=== PATIENT | female | born 1985 | race Caucasian/White ===

== ENCOUNTER 2016-05-08 11:29 | Emergency (ER) | payer SELFPAY ==
[~2016-05-08] VITALS: Ht 170.2 cm; Wt 89.8 kg
[~2016-05-08 11:29] MED LIST: ALBUTEROL0.09 MG/A1; PRENATAL VITAMI1 T10 PO; TYLENOL #3 300/1 TAB PO; ZESTRIL10 MG PO
[2016-05-08 11:54] VITALS: BP 141/80
--- NOTE | 2016-05-08 14:32 | NUR ---
PATIENT PRESENTS TO ED DUE TO ABDOMINAL PAIN SINCE THIS MORNING . PT STATES IM 19 WEEKS , DENIES N/V/D; SKIN IS PINK/WARM/DRY; AAOX4 WITH EVEN AND STEADY GAIT; LUNGS CLEAR BL; HR EVEN AND REGULAR; PT DENIES ANY FEVER, CP, SOB, OR COUGH AT THIS TIME; PATIENT STATES PAIN OF 7/10 AT THIS TIME; PATIENT POSITIONED FOR COMFORT; HOB ELEVATED; BEDRAILS UP X2; BED DOWN.
--- NOTE | 2016-05-08 14:45 | NUR ---
RELAYED TO DR. BULL RESULT OF URINE DIPSTICK AND URINE PREG
[2016-05-08] MEDS ORDERED: HYDROcodone/APAP 5/325 MG 1 TAB TAB PO ONE (14:55)
--- NOTE | 2016-05-08 16:09 | NUR ---
US AT BEDSIDE.
--- NOTE | 2016-05-08 16:30 | NUR ---
PT AAO ONGOING WITH US
[2016-05-08 17:30] VITALS: BP 128/83
--- NOTE | 2016-05-08 17:30 | NUR ---
Patient discharged with v/s stable. Written and verbal after care instructions given and explained. Patient verbalized understanding. Ambulatory with steady gait. All questions addressed prior to discharge. Advised to follow up with PMD.
[2016-09-14] MEDS ORDERED: VENTOLIN H0.09 MG/Ac IH (20:13)
[2016-10-05] MEDS ORDERED: PNV-DHA1 SGL PO (05:23)
[2016-10-09] MEDS ORDERED: MOTRIN600 MG PO (09:09)
== END 2016-05-08 17:30 | disposition home or self-care (01) ==
LOC: MED 11:48
DX: O26.892 Other specified pregnancy related conditions, second trimester (principal); O16.2 Unspecified maternal hypertension, second trimester; O99.512 Diseases of the respiratory system complicating pregnancy, second trimester; R10.31 Right lower quadrant pain; J45.909 Unspecified asthma, uncomplicated; Z3A.18 18 weeks gestation of pregnancy
CPT/HCPCS: 36415; 76705; 80053; 81002; 81025; 83690; 85025; 99285; Q0092

== ENCOUNTER 2016-06-25 12:30 | Observation (INO) | payer MEDICAID ==
[~2016-06-25] VITALS: Ht 170.2 cm; Wt 92.5 kg
[2016-06-25 13:00] VITALS: BP 151/81
[2016-06-25] MEDS ORDERED: PRENATAL LOW IR1 TA1 PO (13:10)
[2016-06-25] MEDS ORDERED: LABETALOL 100 MG TAB ONE ×2 (13:58→20:59)
[2016-06-25] MEDS: LABETALOL 100 MG TAB PO SCH (21:13)
[2016-06-26] MEDS ORDERED: ACETAMINOPHEN 325 MG TAB PO PRN (03:10)
[2016-06-26] MEDS ORDERED: diphenhydrAMINE 50 MG CAP PO SCH (03:30)
[2016-06-26] MEDS ORDERED: ACETAMINOPHEN 325 MG TAB ONE (04:26)
--- NOTE | 2016-06-26 08:20 | NUR ---
PATIENT HAS BEEN SCREENED AND CATEGORIZED LOW NUTRITION RISK. PATIENT WILL BE SEEN WITHIN 7 DAYS OF ADMISSION. 07/02/[address]
[2016-06-26] MEDS: LABETALOL 100 MG TAB PO SCH (08:23)
[2016-06-26] MEDS ORDERED: LABETALOL 100 MG TAB ONE (08:25)
[2016-06-26] MEDS ORDERED: TRANDATE200 M1 PO ×2 (09:56→10:01)
[2016-09-14] MEDS ORDERED: VENTOLIN H0.09 MG/Ac IH (20:13)
[2016-10-05] MEDS ORDERED: PNV-DHA1 SGL PO (05:23)
[2016-10-09] MEDS ORDERED: MOTRIN600 MG PO (09:09)
== END 2016-06-26 10:20 | disposition home or self-care (01) ==
LOC: MLD 12:30
PROVIDERS: ADMIT Obstetrics & Gynecology; ATTEND Obstetrics & Gynecology
DX: O14.92 Unspecified pre-eclampsia, second trimester (principal); O26.892 Other specified pregnancy related conditions, second trimester; R03.0 Elevated blood-pressure reading, without diagnosis of hypertension; R51 Headache; L29.9 Pruritus, unspecified; Z3A.25 25 weeks gestation of pregnancy
CPT/HCPCS: 76805; G0378; Q0092

== ENCOUNTER 2016-09-07 11:25 | Observation (INO) | payer MEDICAID ==
[~2016-09-07] VITALS: Ht 170.2 cm; Wt 94.8 kg
[~2016-09-07 11:25] MED LIST changes: +ALBU0.0939; -ALBUTEROL0.09 MG/A1; +PREN-380 PO; -PRENATAL VITAMI1 T10 PO; +TRA200 PO; -TYLENOL #3 300/1 TAB PO; -ZESTRIL10 MG PO
[2016-09-07 12:38] LABS: BASOPHILS % (AUTO) 0.4 % (0.0-2.0); EOSINOPHILS # (AUTO) 0.4 K/uL (0-0.4); EOSINOPHILS % (AUTO) 4.4 % (0.0-4.0); HEMATOCRIT 32.8 % (36-48); HEMOGLOBIN 10.5 g/dL (12.0-16.0); LYMPHOCYTES % (AUTO) 9.8 % (20.5-51.1); MEAN CORPUSCULAR HEMOGLOBIN 25 pg (27-31); MEAN CORPUSCULAR HGB CONC 32 g/dL (33-37); MEAN CORPUSCULAR VOLUME 78 fL (80-94); MONOCYTES # (AUTO) 0.4 K/uL (0.8-1.0); MONOCYTES % (AUTO) 4.4 % (1.7-9.3); NEUTROPHILS # (AUTO) 8.1 K/uL (1.8-7.7); PLATELET COUNT (AUTO) 250 K/uL (140-450); RED BLOOD CELL COUNT(AUTO) 4.23 MIL/uL (4.20-5.40); RED CELL DISTRIBUTION WIDTH 14.1 % (11.6-13.7); WHITE BLOOD COUNT (AUTO) 9.9 K/uL (4.8-10.8)
[2016-09-07 12:47] LABS: ANION GAP 13.2 (8-16); CALCIUM 8.4 mg/dL (8.5-10.1); CARBON DIOXIDE 22.9 mmol/L (21-32); CREATININE 0.5 mg/dL (0.6-1.3); POTASSIUM 4.1 mmol/L (3.5-5.1)
[2016-09-07 12:54] LABS: ALBUMIN 2.5 g/dL (3.4-5.0); TOTAL BILIRUBIN 0.2 mg/dL (0.0-1.0)
== END 2016-09-07 17:00 | disposition home or self-care (01) ==
LOC: MLD 11:25
PROVIDERS: ADMIT Obstetrics & Gynecology; ATTEND Obstetrics & Gynecology
DX: O62.9 Abnormality of forces of labor, unspecified (principal); Z3A.36 36 weeks gestation of pregnancy
CPT/HCPCS: 36415; 76805; 80053; 81000; 82248; 85025; 85379; 85384; 85730; G0378; Q0092

== ENCOUNTER 2016-09-10 08:24 | Observation (INO) | payer MEDICAID ==
[2016-09-10 09:17] VITALS: BP 125/77
== END 2016-09-10 11:30 | disposition home or self-care (01) ==
LOC: MLD 08:24
PROVIDERS: ADMIT Obstetrics & Gynecology; ATTEND Obstetrics & Gynecology
DX: O26.899 Other specified pregnancy related conditions, unspecified trimester (principal); R03.0 Elevated blood-pressure reading, without diagnosis of hypertension; Z3A.00 Weeks of gestation of pregnancy not specified
CPT/HCPCS: 59025; 76819; 81000; G0378; Q0092

== ENCOUNTER 2016-09-14 19:23 | Observation (INO) | payer MEDICAID ==
[~2016-09-14] VITALS: Ht 170.2 cm; Wt 93.9 kg
[~2016-09-14 19:23] MED LIST changes: +PREN-385 PO; -TRA200 PO
[2016-09-14] MEDS ORDERED: ALBU0.0912 IH (20:13)
== END 2016-09-14 21:50 | disposition home or self-care (01) ==
LOC: MLD 19:23 → MERGE 19:23
PROVIDERS: ADMIT Obstetrics & Gynecology; ATTEND Obstetrics & Gynecology
DX: O26.899 Other specified pregnancy related conditions, unspecified trimester (principal); R10.9 Unspecified abdominal pain; Z3A.00 Weeks of gestation of pregnancy not specified
CPT/HCPCS: 59025; 76815; G0378; Q0092

== ENCOUNTER 2016-09-18 15:21 | Observation (INO) | payer MEDICAID ==
[~2016-09-18] VITALS: Ht 170.2 cm; Wt 93.9 kg
[~2016-09-18 15:21] MED LIST changes: +ALBU0.0912 IH
[2016-09-18 16:35] VITALS: BP 136/90
== END 2016-09-18 17:10 | disposition home or self-care (01) ==
LOC: MLD 15:21
PROVIDERS: ADMIT Obstetrics & Gynecology; ATTEND Obstetrics & Gynecology
DX: O26.893 Other specified pregnancy related conditions, third trimester (principal); R03.0 Elevated blood-pressure reading, without diagnosis of hypertension; Z3A.37 37 weeks gestation of pregnancy
CPT/HCPCS: 59025; 76815; 81000; G0378; Q0092

== ENCOUNTER 2016-09-21 18:33 | Observation (INO) | payer MEDICAID | END 2016-09-21 21:00 | disposition home or self-care (01) | LOC: MFCC 18:33 → MLD 19:37 | PROVIDERS: ADMIT Obstetrics & Gynecology; ATTEND Obstetrics & Gynecology | DX: O42.90 Premature rupture of membranes, unspecified as to length of time between rupture and onset of labor, unspecified weeks of gestation (principal); Z3A.00 Weeks of gestation of pregnancy not specified | CPT/HCPCS: 76819; G0378 ==

== ENCOUNTER 2016-09-25 08:51 | Observation (INO) | payer MEDICAID ==
[~2016-09-25] VITALS: Ht 170.2 cm; Wt 96.2 kg
[2016-09-25 09:40] VITALS: BP 134/83
== END 2016-09-25 11:30 | disposition home or self-care (01) ==
LOC: MLD 08:51
PROVIDERS: ADMIT Obstetrics & Gynecology; ATTEND Obstetrics & Gynecology
DX: O36.8190 Decreased fetal movements, unspecified trimester, not applicable or unspecified (principal); Z3A.00 Weeks of gestation of pregnancy not specified
CPT/HCPCS: 59025; 76815; G0378; Q0092

== ENCOUNTER 2016-09-26 06:30 | Observation (INO) | payer MEDICAID ==
[~2016-09-26] VITALS: Ht 170.2 cm; Wt 96.2 kg
--- NOTE | 2016-09-26 09:04 | NUR ---
PATIENT HAS BEEN SCREENED AND CATEGORIZED LOW NUTRITION RISK. PATIENT WILL BE SEEN WITHIN 7 DAYS OF ADMISSION. 10/02/[address]
== END 2016-09-26 09:30 | disposition home or self-care (01) ==
LOC: MLD 06:30
PROVIDERS: ADMIT Obstetrics & Gynecology; ATTEND Obstetrics & Gynecology
DX: O36.8190 Decreased fetal movements, unspecified trimester, not applicable or unspecified (principal); Z3A.00 Weeks of gestation of pregnancy not specified
CPT/HCPCS: 76819; G0378; Q0092

== ENCOUNTER 2016-09-28 16:30 | Observation (INO) | payer MEDICAID ==
[~2016-09-28] VITALS: Ht 170.2 cm; Wt 96.2 kg
[2016-09-28 17:12] VITALS: BP 148/81
== END 2016-09-28 18:30 | disposition home or self-care (01) ==
LOC: MLD 16:30
PROVIDERS: ADMIT Obstetrics & Gynecology; ATTEND Obstetrics & Gynecology
DX: O36.8190 Decreased fetal movements, unspecified trimester, not applicable or unspecified (principal); Z3A.00 Weeks of gestation of pregnancy not specified
CPT/HCPCS: 76819; G0378; Q0092

== ENCOUNTER 2016-10-02 13:13 | Observation (INO) | payer MEDICAID ==
[~2016-10-02] VITALS: Ht 170.2 cm; Wt 96.2 kg
[2016-10-02 13:37] VITALS: BP 133/79
== END 2016-10-02 15:20 | disposition home or self-care (01) ==
LOC: MLD 13:13
PROVIDERS: ADMIT Obstetrics & Gynecology; ATTEND Obstetrics & Gynecology
DX: O36.8190 Decreased fetal movements, unspecified trimester, not applicable or unspecified (principal); Z3A.00 Weeks of gestation of pregnancy not specified
CPT/HCPCS: 76815; G0378; Q0092; 81000

== ENCOUNTER 2016-10-05 05:12 | Inpatient (IN) | payer MEDICAID ==
[~2016-10-05] VITALS: Ht 170.2 cm; Wt 97.5 kg
[2016-10-05] MEDS ORDERED: LACTATED RINGERS 1,000 ML IV SCH (05:23)
[2016-10-05] MEDS ORDERED: PREN1SGL25 PO (05:23)
[2016-10-05] MEDS ORDERED: CARBOPROST 250 MCG/ML AMP IM PRN ×2 (05:25→12:16)
[2016-10-05] MEDS ORDERED: METHYLERGONOVINE 0.2 MG/ML AMP IM PRN ×2 (05:25→15:35)
[2016-10-05 06:00] LABS: BASOPHILS % (AUTO) 0.4 % (0.0-2.0); EOSINOPHILS # (AUTO) 0.3 K/uL (0-0.4); EOSINOPHILS % (AUTO) 3.2 % (0.0-4.0); HEMATOCRIT 32.5 % (36-48); HEMOGLOBIN 10.7 g/dL (12.0-16.0); LYMPHOCYTES # (AUTO) 1.1 K/uL (2.5-16.5); LYMPHOCYTES % (AUTO) 13.3 % (20.5-51.1); MEAN CORPUSCULAR HEMOGLOBIN 25 pg (27-31); MEAN CORPUSCULAR HGB CONC 33 g/dL (33-37); MEAN CORPUSCULAR VOLUME 77 fL (80-94); MONOCYTES # (AUTO) 0.5 K/uL (0.8-1.0); MONOCYTES % (AUTO) 6.2 % (1.7-9.3); NEUTROPHILS # (AUTO) 6.3 K/uL (1.8-7.7); NEUTROPHILS % (AUTO) 76.9 % (42.2-75.2); PLATELET COUNT (AUTO) 251 K/uL (140-450); RED BLOOD CELL COUNT(AUTO) 4.24 MIL/uL (4.20-5.40); RED CELL DISTRIBUTION WIDTH 15.6 % (11.6-13.7); WHITE BLOOD COUNT (AUTO) 8.2 K/uL (4.8-10.8)
[2016-10-05 06:47] VITALS: BP 135/90
[2016-10-05] MEDS ORDERED: ceFAZolin 1,000 MG VIAL ONE (07:01)
[2016-10-05 07:15] LABS: APPEARANCE,URINE HAZY (CLEAR); BILIRUBIN,URINE NEGATIVE (NEGATIVE); BLOOD, URINE NEGATIVE (NEGATIVE); COLOR,URINE YELLOW (YELLOW); LEUKOCYTE ESTERASE ,URINE 3+ (NEGATIVE); NITRITE, URINE NEGATIVE (NEGATIVE); PH,URINE 6.5 (5.0-9.0); PROTEIN,URINE NEGATIVE (NEGATIVE); UGLUCOSE NEGATIVE (NEGATIVE); UROBILINOGEN,URINE 0.2 EU/dL (0.2 - 1)
[2016-10-05 07:20] LABS: BACTERIA,URINE 0-2 (RARE) /HPF (None Seen); RBC,URINE 0-2 /HPF (0-5)
[2016-10-05] MEDS ORDERED: MIDAZOLAM 2 MG/2 ML VIAL ONE (07:20)
[2016-10-05] MEDS ORDERED: MORPHINE PRES FREE 10 MG/10 ML AMP IV ONE (07:20)
[2016-10-05] MEDS ORDERED: OXYTOCIN 20 UNITS/LR PREMIX 1,000 ML IV PRN (07:30)
[2016-10-05] MEDS ORDERED: METHYLERGONOVINE 0.2 MG/ML AMP ONE (07:31)
[2016-10-05] MEDS ORDERED: OXYTOCIN 10 UNITS/ML VIAL ONE (07:31)
[2016-10-05] MEDS ORDERED: BUPIVACAINE-MPF 0.75% 10 ML VIAL INJ ONE (08:00)
[2016-10-05] MEDS ORDERED: OXYTOCIN 20 UNITS/LR PREMIX 1,000 ML IV SCH (08:37)
[2016-10-05] MEDS ORDERED: HYDROmorphone 1 MG/ML AMP IVP PRN (08:40)
[2016-10-05] MEDS ORDERED: NALBUPHINE 10 MG/ML AMP IVP PRN (08:40)
[2016-10-05] MEDS ORDERED: NALOXONE 0.4 MG/ML VIAL IVP PRN ×3 (08:40)
[2016-10-05] MEDS ORDERED: ONDANSETRON 4 MG/2 ML VIAL IVP PRN ×2 (08:40)
[2016-10-05] MEDS ORDERED: diphenhydrAMINE 50 MG/ML VIAL IVP PRN ×2 (08:40)
[2016-10-05] MEDS ORDERED: MEPERIDINE 25 MG/ML SYR IVP PRN (08:40)
[2016-10-05] MEDS ORDERED: ONDANSETRON 4 MG/2 ML VIAL ONE (09:00)
--- NOTE | 2016-10-05 09:52 | NUR ---
PATIENT HAS BEEN SCREENED AND CATEGORIZED LOW NUTRITION RISK. PATIENT WILL BE SEEN WITHIN 7 DAYS OF ADMISSION. 10/11/[address]
[2016-10-05] MEDS: KETOROLAC 30 MG/ML VIAL IM/IVP SCH ×3 (11:31→23:58)
[2016-10-05] MEDS: HYDROmorphone 1 MG/ML AMP IVP PRN ×2 (12:24→18:44)
[2016-10-05] MEDS ORDERED: TEMAZEPAM 15 MG CAP PO PRN (15:35)
[2016-10-05] MEDS ORDERED: MEASLES, MUMPS, AND RUBELLA 1 VIAL SQVAC PRN (15:35)
[2016-10-05] MEDS ORDERED: SIMETHICONE 80 MG TAB.CHEW PO PRN (15:35)
[2016-10-05] MEDS ORDERED: TRIMETHOBENZAMIDE 200 MG/2 ML SYR IM PRN (15:35)
[2016-10-05] MEDS: OXYTOCIN 20 UNITS/LR PREMIX 1,000 ML IV SCH (20:33)
[2016-10-05] MEDS: DOCUSATE SOD/SENNA 50/8.6 MG 1 TAB PO SCH (20:55)
[2016-10-06] MEDS: HYDROmorphone 1 MG/ML AMP IVP PRN (01:11)
[2016-10-06] MEDS: OXYTOCIN 20 UNITS/LR PREMIX 1,000 ML IV SCH (04:51)
[2016-10-06 06:03] LABS: BASOPHILS % (AUTO) 0.2 % (0.0-2.0); EOSINOPHILS # (AUTO) 0.2 K/uL (0-0.4); EOSINOPHILS % (AUTO) 2.3 % (0.0-4.0); HEMATOCRIT 28.9 % (36-48); HEMOGLOBIN 9.3 g/dL (12.0-16.0); MEAN CORPUSCULAR HEMOGLOBIN 25 pg (27-31); MEAN CORPUSCULAR HGB CONC 32 g/dL (33-37); MEAN CORPUSCULAR VOLUME 77 fL (80-94); MONOCYTES # (AUTO) 0.6 K/uL (0.8-1.0); MONOCYTES % (AUTO) 5.7 % (1.7-9.3); NEUTROPHILS # (AUTO) 8.3 K/uL (1.8-7.7); NEUTROPHILS % (AUTO) 81.8 % (42.2-75.2); PLATELET COUNT (AUTO) 195 K/uL (140-450); RED BLOOD CELL COUNT(AUTO) 3.78 MIL/uL (4.20-5.40); RED CELL DISTRIBUTION WIDTH 15.9 % (11.6-13.7); WHITE BLOOD COUNT (AUTO) 10.1 K/uL (4.8-10.8)
[2016-10-06] MEDS: oxyCODONE/APAP 5/325 MG 1 TAB TAB PO PRN ×4 (06:20→20:13)
[2016-10-06] MEDS: IBUPROFEN 800 MG TAB PO PRN (13:00)
[2016-10-06] MEDS: DOCUSATE SOD/SENNA 50/8.6 MG 1 TAB PO SCH (21:06)
[2016-10-07] MEDS: oxyCODONE/APAP 5/325 MG 1 TAB TAB PO PRN (01:07)
[2016-10-07] MEDS: IBUPROFEN 800 MG TAB PO PRN ×3 (04:39→16:25)
[2016-10-07] MEDS: HYDROcodone/APAP 5/325 MG 1 TAB TAB PO PRN ×3 (08:04→20:29)
[2016-10-07] MEDS: DOCUSATE SOD/SENNA 50/8.6 MG 1 TAB PO SCH (20:29)
[2016-10-08] MEDS: HYDROcodone/APAP 5/325 MG 1 TAB TAB PO PRN ×4 (01:55→23:03)
[2016-10-08] MEDS: IBUPROFEN 800 MG TAB PO PRN ×3 (06:24→20:27)
[2016-10-08] MEDS: DOCUSATE SOD/SENNA 50/8.6 MG 1 TAB PO SCH (20:27)
[2016-10-09] MEDS: IBUPROFEN 800 MG TAB PO PRN (06:02)
[2016-10-09] MEDS ORDERED: IBUP-2213 PO (09:09)
[2016-10-09] MEDS: HYDROcodone/APAP 5/325 MG 1 TAB TAB PO PRN (10:27)
== END 2016-10-09 13:00 | disposition home or self-care (01) | DRG 540 ==
LOC: MLD 05:12 → EDUNIT# 07:30 → MFCC 09:40
PROVIDERS: ADMIT Obstetrics & Gynecology; ATTEND Obstetrics & Gynecology
PROC: 10D00Z1 Extraction of Products of Conception, Low, Open Approach (ICD-10-PCS; principal; 2016-10-05 07:30)
PROC: 0UB70ZZ Excision of Bilateral Fallopian Tubes, Open Approach (ICD-10-PCS; 2016-10-05 07:30)
DX: O34.211 Maternal care for low transverse scar from previous cesarean delivery (principal); O16.4 Unspecified maternal hypertension, complicating childbirth; O99.52 Diseases of the respiratory system complicating childbirth; O90.81 Anemia of the puerperium; D64.9 Anemia, unspecified; J45.909 Unspecified asthma, uncomplicated; O69.81X0 Labor and delivery complicated by cord around neck, without compression, not applicable or unspecified; Z37.0 Single live birth; Z28.21 Immunization not carried out because of patient refusal; Z3A.39 39 weeks gestation of pregnancy; Z87.891 Personal history of nicotine dependence; Z30.2 Encounter for sterilization; Z82.49 Family history of ischemic heart disease and other diseases of the circulatory system; Z81.3 Family history of other psychoactive substance abuse and dependence
CPT/HCPCS: 36415; 81001; 85025; 86592; 86886; 86900; 86901; 87086; J0690; J1170; J1885; J2210; J2250; J2270; J2405; J2590; J3490; J7060; J7120

== ENCOUNTER 2016-12-08 11:09 | Emergency (ER) | payer MEDICAID ==
[~2016-12-08] VITALS: Ht 170.2 cm; Wt 85.8 kg
[~2016-12-08 11:09] MED LIST changes: +IBUP-2213 PO; +PREN1SGL25 PO
[2016-12-08 12:29] VITALS: BP 144/88
--- NOTE | 2016-12-08 12:45 | NUR ---
PATIENT LEFT WITHOUT BEING SEEN BY DR. KNAPP. NO FURTHER CARE PROVIDED FOR PATIENT.
== END 2016-12-08 12:45 | disposition left against medical advice (07) ==
LOC: MED 11:09
DX: R03.0 Elevated blood-pressure reading, without diagnosis of hypertension (principal); Z53.21 Procedure and treatment not carried out due to patient leaving prior to being seen by health care provider